=== PATIENT | female | born 1985 | race Asian ===

== ENCOUNTER 2019-07-22 14:29 | Emergency (ER) | payer MEDICAID ==
[~2019-07-22] VITALS: Ht 172.7 cm; Wt 86.2 kg
--- NOTE | 2019-07-22 14:32 | NUR ---
Came in for "Abdominal pain x1mo, Cough/cold symptoms xweeks", homeless, to ER bed 7, hooked to monitor, changedt o hosp gown, warm blanket provided, Dr Dominguez at bedside
[2019-07-22] MEDS ORDERED: ACETAMINOPHEN ES 500 MG TABLET ONE (14:52)
[2019-07-22] MEDS ORDERED: ACETAMINOPHEN ES 500 MG TABLET PO ONE (15:00)
[2019-07-22] MEDS ORDERED: IV NS 0.9% 1,000 ML BAG IV ONE (15:00)
[2019-07-22 15:30] LABS: BASOPHILS # (AUTO) 0.1 /CMM (0.0-0.2); EOSINOPHILS % (AUTO) 1.5 % (0.0-6.0); HEMATOCRIT 38 % (33-45); LYMPHOCYTES % (AUTO) 30.1 % (20.0-44.0); MEAN CORPUSCULAR HGB CONC 31 g/dl (31.0-36.0); MEAN CORPUSCULAR VOLUME 74 fL (82-100); MONOCYTES # (AUTO) 0.7 /CMM (0.1-1.30); MONOCYTES % (AUTO) 11.3 % (2.0-12.0); NEUTROPHILS # (AUTO) 3.7 /CMM (1.8-8.9); NEUTROPHILS % (AUTO) 56.1 % (43.0-81.0); PLATELET COUNT (AUTO) 443 /CMM (150-450); RED BLOOD CELL COUNT(AUTO) 5.18 MIL/uL (4.0-5.2); WHITE BLOOD COUNT (AUTO) 6.5 K/uL (4.3-11.0)
[2019-07-22 16:06] LABS: CALCIUM, SERUM 8.4 mg/dL (8.5-10.1); CREATININE 1.3 mg/dL (0.6-1.3); POTASSIUM 4.4 mmol/L (3.5-5.1)
[2019-07-22 16:12] LABS: ALBUMIN 2.9 g/dL (3.4-5.0); BILIRUBIN,DIRECT 0.3 mg/dL (0.0-0.2); TOTAL PROTEIN, SERUM 7.3 g/dL (6.4-8.2)
--- NOTE | 2019-07-22 16:38 | NUR ---
Patient in bed, awake, hooked to monitor, will continue to monitor accordingly
[2019-07-22 16:42] LABS: BILIRUBIN,URINE MODERATE (NEGATIVE); BLOOD, URINE TRACE Ery/uL (NEGATIVE); COLOR,URINE HAZY (YELLOW); KETONES,URINE NEGATIVE (NEGATIVE); PROTEIN,URINE 1+ mg/dl (NEGATIVE); UGLUCOSE 100 MG/DL mg/dL (NEGATIVE)
[2019-07-22 16:43] LABS: APPEARANCE,URINE AMBER (CLEAR); NITRITE, URINE NEGATIVE (NEGATIVE)
[2019-07-22 16:44] LABS: LEUKOCYTE ESTERASE ,URINE 2+ (NEGATIVE)
[2019-07-22 16:47] LABS: BACTERIA,URINE 1+ /HPF (None Seen); RBC,URINE 0-2 /HPF (0-2); SQUAMOUS EPITHELIAL CELL,UR Few /HPF (None Seen); WBC,URINE 21-50 /HPF (0-3)
--- NOTE | 2019-07-22 18:12 | NUR ---
Patient in bed, awake, hooked to monitor, will continue to monitor accordingly
[2019-07-22] MEDS ORDERED: KETOROLAC TROMETHAMINE 15 MG/ML VIAL ONE (19:32)
--- NOTE | 2019-07-22 19:38 | NUR ---
Gardenia martinez in [facility] - 07/22/19 at 1939 by JENNIFER Patient in bed, awake, hooked to monitor, will continue to monitor accordingly
--- NOTE | 2019-07-22 19:38 | NUR ---
IV removed. Catheter intact and site benign. Pressure and 4x4 applied to site. No bleeding noted.Patient given written and verbal discharge instructions. Patient verbalizes understanding of instructions. Patient is ambulatory with steady gait. Refuses offer of correction placement. Patient given list of available shelters in surrounding area. Patient discharged in proper clothing, name band removed. All belongings returned to patient.
[2019-07-22 19:41] VITALS: BP 119/76
[2019-07-22] MEDS ORDERED: KETOROLAC TROMETHAMINE INJ 30 MG/ML VIAL IV ONE (20:00)
== END 2019-07-22 19:42 | disposition home or self-care (01) ==
LOC: ER 14:30
DX: N39.0 Urinary tract infection, site not specified (principal); R10.30 Lower abdominal pain, unspecified; J45.909 Unspecified asthma, uncomplicated; F10.10 Alcohol abuse, uncomplicated; F15.10 Other stimulant abuse, uncomplicated; F12.10 Cannabis abuse, uncomplicated; R00.0 Tachycardia, unspecified; G40.909 Epilepsy, unspecified, not intractable, without status epilepticus; Y90.9 Presence of alcohol in blood, level not specified; Z59.0 Homelessness
CPT/HCPCS: 36415; 71045; 80048; 80076; 80305; 80307; 81001; 83690; 84703; 85025; 87086; 93005; 99285; J1885; J7030; 81000-TC; 87186-TC; G0480

== ENCOUNTER 2020-06-23 19:36 | Emergency (ER) | payer MEDICAID, OTHER ==
[~2020-06-23] VITALS: Ht 157.5 cm; Wt 81.6 kg
[2020-06-23] MEDS ORDERED: MORPHINE SULFATE INJ 2 MG/ML DISP.SYRIN IV ONE (20:00)
[2020-06-23] MEDS ORDERED: ONDANSETRON HCL/PF 4 MG/2 ML VIAL IVP ONE (20:00)
[2020-06-23] MEDS ORDERED: MORPHINE SULFATE INJ 4 MG/ML DISP.SYRIN ONE (20:07)
[2020-06-23] MEDS ORDERED: ONDANSETRON HCL/PF 4 MG/2 ML VIAL ONE (20:07)
[2020-06-23] MEDS: IV NS 0.9% 1,000 ML BAG IV ONE ×2 (20:31→21:30)
[2020-06-23 20:36] LABS: BASOPHILS # (AUTO) 0.2 /CMM (0.0-0.2); BASOPHILS % (AUTO) 1.3 % (0.0-2.0); EOSINOPHILS % (AUTO) 0.5 % (0.0-6.0); HEMATOCRIT 39 % (33-45); HEMOGLOBIN 12.5 g/dL (11.5-14.8); LYMPHOCYTES # (AUTO) 2.2 /CMM (0.8-4.8); LYMPHOCYTES % (AUTO) 18.3 % (20.0-44.0); MEAN CORPUSCULAR HGB CONC 32 g/dl (31.0-36.0); MEAN CORPUSCULAR VOLUME 78 fL (82-100); MONOCYTES # (AUTO) 1.6 /CMM (0.1-1.30); NEUTROPHILS % (AUTO) 66.9 % (43.0-81.0); PLATELET COUNT (AUTO) 362 /CMM (150-450); RED BLOOD CELL COUNT(AUTO) 5.02 MIL/uL (4.0-5.2)
[2020-06-23 20:44] LABS: CALCIUM, SERUM 7.8 mg/dL (8.5-10.1); CREATININE 1.2 mg/dL (0.6-1.3); POTASSIUM 4.2 mmol/L (3.5-5.1)
--- NOTE | 2020-06-23 20:46 | NUR ---
[facility] AAOX4. INMILD RESP DISTRESS, BREATHING RAPID AND SOB. PT NOTED SATTING @ 90-92% ON RA PLACE DON O2 VIA NC @ 2LPM SATTING @ 97%. PT ALSO NOTED TACHYCARDIA @ 140. BROUGHT IN FOR BILAT LATERAL ABDOMINAL PAIN. PT REPORTS VOMMITING EARLIER. PT HAS HX OF CHF. NOTED BILAT LOWER LEG EDEMA. LOWER ABDOMINAL EDEMA. MD WAS AT THE BEDSIDE FOR EVAL. IV ESTABLSIED, BLOOD DRAWN. MEDICATED ORDERED. MD ORDER 1L NS IV X 1, HELD D/T HX OF CHF AND THE NOTING OF EDEMA, MD OK WITH IT. PT ON MONITOR.
[2020-06-23 20:50] LABS: ALBUMIN 2.7 g/dL (3.4-5.0); BILIRUBIN,DIRECT 1.7 mg/dL (0.0-0.2); BILIRUBIN,TOTAL 2.7 mg/dL (0.2-1.0); TOTAL PROTEIN, SERUM 6.9 g/dL (6.4-8.2)
--- NOTE | 2020-06-23 21:02 | NUR ---
CALLED FOR COVID SWAB.
--- NOTE | 2020-06-23 21:05 | NUR ---
PT STILL UNABLE TO URINATE AT THIS TIME. PT DENIED THAT SHE IS . PT SIGNED WAIVER.
--- NOTE | 2020-06-23 21:07 | NUR ---
PER MD BEGIN STAT CT ABDOMEN PELVIS W/O CONTRAST.
--- NOTE | 2020-06-23 21:13 | NUR ---
PT BROUGHT BY RADIOLOGY TO CT
--- NOTE | 2020-06-23 21:14 | NUR ---
REC'D POS [facility] RESULTS. CALLED RADIOLOGY AND INFORMED TECH TO CANCEL CT
--- NOTE | 2020-06-23 21:30 | NUR ---
MD ORDER TO GIVE THE 1L NS THAT WAS HELD. NOTED AND CARRIED OUT
--- NOTE | 2020-06-23 21:57 | NUR ---
US TECH AT BEDSIDE
[2020-06-23 22:27] LABS: ACETAMINOPHEN 0 ug/ml (10-30); ALCOHOL, BLOOD 2 mg/dL (0-0)
--- NOTE | 2020-06-23 22:40 | NUR ---
CALLED SHREYA FOR STAT READ ON ULTRASOUND
--- NOTE | 2020-06-23 22:49 | NUR ---
DR. COMBS ON THE PHONE WITH DR. WHYTE
--- NOTE | 2020-06-23 22:52 | NUR ---
ATTEMPTED TO CONTACT DR. CABELLO ([phone]). LEFT MESSAGE, WILL FOLLOW UP
--- NOTE | 2020-06-23 23:04 | NUR ---
ATTEMPTED TO CONTACT DR. CABELLO ([phone] AND [phone]) LEFT MESSAGE, WILL FOLLOW UP
--- NOTE | 2020-06-23 23:09 | NUR ---
DR. COMBS ON THE PHONE WITH DR. CABELLO
--- NOTE | 2020-06-23 23:17 | NUR ---
SPOKE WITH ARCHIE FROM [facility], NO BEDS AVAILABLE AT THIS TIME
--- NOTE | 2020-06-23 23:19 | NUR ---
PER TAX TECHNICIAN, MULTIPLE UNSUCCESSFUL ATTEMPTS TO CONTACT HOSPITAL NURSE LIAISON AT THIS TIME
--- NOTE | 2020-06-23 23:23 | NUR ---
SPOKE WITH RUBÉN FROM [facility]. PER REQUEST, WILL FAX CLINICAL INFORMATION AT THIS TIME
--- NOTE | 2020-06-23 23:26 | NUR ---
ATTEMPTED TO CONTACT DR. ISLAS REGARDING AUTHORIZATION OF MRI. LEFT MESSAGE, WILL FOLLOW UP
--- NOTE | 2020-06-23 23:30 | NUR ---
PATIENT IS AWAKE. AAOX4. NO SOB. NO C/O AT THIS TIME. PATIENT IS WATCHING TELEVISION AND LOOKING AT CELL PHONE. PATIENT IS BREATHING EVENLY AND UNLABORED ON ROOM AIR. CONNECTED TO THE CARID[employer] MONITOR. SIDE RAILS ARE UP FOR SAFETY. CALL LIGHT IS WITHIN REACH.
--- NOTE | 2020-06-23 23:53 | NUR ---
SPOKE WITH CHARGE NURSE FROM [facility], PENDING CALL BACK FROM [employer]
--- NOTE | 2020-06-23 23:54 | NUR ---
SPOKE WITH RUBÉN FROM [facility]. PER MADHAVI [place] UNABLE TO PERFORM MRCP AT THIS TIME. SQUIRES NEEDS TEXTILE CHEMIST APPROVAL, WON'T BE AVAILABLE UNTIL AFTER 0800. INFORMED RUBÉN TO KEEP CASE OPEN AT THIS TIME. MD AMAYA
--- NOTE | 2020-06-24 00:02 | NUR ---
SPOKE WITH STANTON FROM [facility]. NO BEDS AVAILABLE AT THIS TIME, ABLE TO PRESENT CASE IN THE MORNING
--- NOTE | 2020-06-24 00:13 | NUR ---
SPOKE WITH LYNETTE FROM [facility]. WILL FAX CLINICAL INFORMATION PER REQUEST AT THIS TIME
--- NOTE | 2020-06-24 03:00 | NUR ---
PATIENT IS SLEEPING; EASILY AROUSABLE. BREATHING EVENLY AND UNLABORED ON 4L OF N/C. PATIENT IS CONNECTED TO THE ROOFING SUPERINTENDENT. SIDE RAILS ARE UP FOR SAFETY. CALL LIGHT IS WITHIN REACH. WILL CONTINUE TO MONITOR PATIENT CLOSELY.
[2020-06-24] MEDS ORDERED: FUROSEMIDE 40 MG/4 ML VIAL IV ONE (06:00)
--- NOTE | 2020-06-24 07:02 | NUR ---
PATIENT IS AWAKE. PATIENT IS LOOKING AT CELL PHONE. NOT IN ANY PAIN. NO SOB. CONNECTED TO THE MONITOR. PATIENT IS AAOX4. BREATHING EVENLY AND UNLABORED ON ROOM AIR. CALL LIGHT IS WITHIN REACH. PERSONAL BELONGINGS WITHIN REACH.
--- NOTE | 2020-06-24 07:26 | NUR ---
RECEIVED REPORT FROM HELENE KEYS FOR [facility]. PT IS AAOX4, NOT IN RESPIRATORY DISTRESS, V/S STABLE, KEPT RESTED AND COMFORTABLE, WILL CONTINUE TO MONITOR.
[2020-06-24] MEDS ORDERED: FURO-144 PO (07:45)
[2020-06-24] MEDS ORDERED: CARV6.252 PO (07:45)
--- NOTE | 2020-06-24 08:36 | NUR ---
DIRECTOR GEOTHERMAL OPERATIONS ETA 1 HR
--- NOTE | 2020-06-24 09:02 | NUR ---
maintenance mechanic technician will arrive in 20 min
--- NOTE | 2020-06-24 09:25 | NUR ---
PT IS WHEELED TO MRI VIA WHEELCHAIR.
--- NOTE | 2020-06-24 10:05 | NUR ---
PT IS BACK FROM MRI.
--- NOTE | 2020-06-24 10:29 | NUR ---
Dr. Delatorre denied transfer to [facility]
--- NOTE | 2020-06-24 11:19 | NUR ---
ER PHLEB AT BEDSIDE FOR REPEAT BLOOD DRAW.
--- NOTE | 2020-06-24 11:38 | NUR ---
[employer] - paged
[2020-06-24 11:41] LABS: BASOPHILS # (AUTO) 0.1 /CMM (0.0-0.2); BASOPHILS % (AUTO) 0.7 % (0.0-2.0); EOSINOPHILS % (AUTO) 0.7 % (0.0-6.0); HEMATOCRIT 39 % (33-45); HEMOGLOBIN 12.3 g/dL (11.5-14.8); MEAN CORPUSCULAR HGB CONC 31 g/dl (31.0-36.0); MEAN CORPUSCULAR VOLUME 80 fL (82-100); MONOCYTES # (AUTO) 1.1 /CMM (0.1-1.30); MONOCYTES % (AUTO) 9.1 % (2.0-12.0); NEUTROPHILS # (AUTO) 8.4 /CMM (1.8-8.9); NEUTROPHILS % (AUTO) 72.5 % (43.0-81.0); PLATELET COUNT (AUTO) 319 /CMM (150-450); RED BLOOD CELL COUNT(AUTO) 4.92 MIL/uL (4.0-5.2); WHITE BLOOD COUNT (AUTO) 11.6 K/uL (4.3-11.0)
[2020-06-24 11:55] LABS: ALBUMIN 2.3 g/dL (3.4-5.0); BILIRUBIN,TOTAL 3.3 mg/dL (0.2-1.0); CALCIUM, SERUM 8.1 mg/dL (8.5-10.1); CREATININE 1.1 mg/dL (0.6-1.3); POTASSIUM 4.5 mmol/L (3.5-5.1); TOTAL PROTEIN, SERUM 6.6 g/dL (6.4-8.2)
--- NOTE | 2020-06-24 13:11 | NUR ---
[facility] [phone], presented case. Requested clinicals to FAX [phone]
--- NOTE | 2020-06-24 13:35 | NUR ---
PER POLLO FROM [facility] CALL [phone] FOT PT TRANSFER FOR HIGHER LEVEL OF CARE.
--- NOTE | 2020-06-24 14:19 | NUR ---
[facility] called to Decline pt. [facility]
[2020-06-24] MEDS ORDERED: ACETAMINOPHEN ES 500 MG TABLET ONE (14:56)
--- NOTE | 2020-06-24 19:45 | NUR ---
REC'D PT IN BED, AWAKE, ALERT, PT ON MONITOR, NOT IN ANY DISTRESS, PT ATE DINNER, DENIES ANY SOB/CP. VSS. WCTM
--- NOTE | 2020-06-25 01:05 | NUR ---
Pt resting [place]. No signs of distress noted. will cont to monitor pt.
--- NOTE | 2020-06-25 04:44 | NUR ---
PT TRANSFERRED TO BED 6, BED 13 UNDER MAINTENANCE.
--- NOTE | 2020-06-25 12:00 | NUR ---
06/25 @ 1102: Received a call from Kenny HARRIS CM , stating that he spoke with Bertram Morales MD and recommending OP GI, OB for possible ERCP, KIMBERLY SANDERS will set up an Outpatient appt. Spoke with Lester- ER and notified regarding rec's from Bertram Morales MD , per Lester to talk to ER MD . 06/25 @ 1100: Spoke with Dr. Saleem Alvarez and relayed what KIMBERLY SANDERS stated. Per Dr. Monge, he is not comfortable discharging the pt given her elevating transaminases, Called Jemma HARRIS CM and explained to her [facility] ER MD stated, and that ER tried to transfer the pt to several hospitals as well as such as [facility], [facility], [place], [place] and was declined. Jemma requested for all available updated clinicals to be faxed to [phone], fax sent. 06/25 @ 1151: Received a call from Kenny HARRIS CM, Dr. Merrill, will possibly accept the pt, requested for clinicals to be faxed to@ [phone] , fax sent
--- NOTE | 2020-06-25 15:02 | NUR ---
06/25 @ 9304: Received a call from [place] requesting for ER MD name and phone number for [facility] , needed info provided to Jemma . Delbert MYRICK notified regarding [facility].
--- NOTE | 2020-06-25 15:22 | NUR ---
PT ACCEPTED TO [facility] UNDER DR. RODRÍGUEZ CALL [phone] FOR REPORT SPEAK WITH PARRISH.
--- NOTE | 2020-06-25 15:26 | NUR ---
[facility] CALLED. 1) FAX CLINICALS TO TRANSFER CENTER [phone] 2) THEN CALL [phone] PARRISH IF NO ANSWER CALL [phone] 3) HOSPITALIST IS DR. MONTESINOS [phone] IF AFTER HOURS (1700) CALL [phone]
--- NOTE | 2020-06-25 15:51 | NUR ---
report given to horacio NARAYAN for amelie
--- NOTE | 2020-06-25 16:35 | NUR ---
CALLED [id number] SHALINI REF #[phone] WILL CALL US WITH TRANSPORT INFO.
--- NOTE | 2020-06-25 17:35 | NUR ---
[facility] WILL TRANSPORT AT 1900 PER ALBA FROM [id number]
--- NOTE | 2020-06-25 19:00 | NUR ---
[facility] CALLED WILL BE DELAYED. NEW ETA [phone]
[2020-06-25 21:21] VITALS: BP 138/88
--- NOTE | 2020-06-25 21:21 | NUR ---
REPORT GIVEN TO [facility] FOR TRANSPORATION [facility]. PT TRANSPORTED TO [facility] IN STABLE CONDITION
== END 2020-06-25 21:21 | disposition short-term general hospital (02) ==
LOC: ER 19:38
DX: O99.611 Diseases of the digestive system complicating pregnancy, first trimester (principal); K76.0 Fatty (change of) liver, not elsewhere classified; O26.611 Liver and biliary tract disorders in pregnancy, first trimester; K76.89 Other specified diseases of liver; R77.8 Other specified abnormalities of plasma proteins; Z3A.11 11 weeks gestation of pregnancy; Z59.0 Homelessness; R11.2 Nausea with vomiting, unspecified; E87.1 Hypo-osmolality and hyponatremia; E86.0 Dehydration; O99.212 Obesity complicating pregnancy, second trimester; E66.01 Morbid (severe) obesity due to excess calories; R00.0 Tachycardia, unspecified; O99.321 Drug use complicating pregnancy, first trimester; F15.10 Other stimulant abuse, uncomplicated; J45.909 Unspecified asthma, uncomplicated; Z20.822 Contact with and (suspected) exposure to COVID-19; R94.31 Abnormal electrocardiogram [ECG] [EKG]; I42.7 Cardiomyopathy due to drug and external agent; T43.621S Poisoning by amphetamines, accidental (unintentional), sequela
CPT/HCPCS: 36415; 71045; 76705; 76805; 80048; 80076; 80299; 80307; 80320; 83690; 83880; 84484; 84702; 85025; 87081; 87426; 93005; 96361; 96374; 96375; 99291; C9803; J2270; J2405; J7030 ×2; G0480